=== PATIENT | female | born 1950 | race American Indian/Alaskan Native ===

== ENCOUNTER → 2023-01-24 | Outpatient (CLI) | payer OTHER ==
[2023-01-24 16:28] LABS: Potassium 3.6 mmol/L (3.5-5.1); Sodium 137 mmol/L (136-145)
[2023-01-24 16:29] LABS: Alanine Aminotransferase 23 U/L (13-56); Albumin 3.5 g/dL (3.4-5.0); Alkaline Phosphatase 100 U/L (45-117); Anion Gap 4 (5-15); Aspartate Aminotransferase 15 U/L (15-37); BUN/Creatinine Ratio 29.1 (10.0-20.0); Bilirubin, Total 0.6 mg/dL (0.2-1.0); Blood Urea Nitrogen 16 mg/dL (7-18); Calcium 9.3 mg/dL (8.5-10.1); Carbon Dioxide 24 mmol/L (21-32); Chloride 109 mmol/L (98-107); GFR African American 140 mL/min; GFR Non-African American 115 mL/min; Glucose 90 mg/dL (74-106); Total Protein 7.5 g/dL (6.4-8.2)
[2023-01-24 19:09] LABS: CRP High Sensitivity 0.085 mg/dL (< 0.3); Cholesterol 139 mg/dL (< 200); Creatine Kinase IFCC 79 U/L (26-192); HDL Cholesterol 41 mg/dL (40-59); LDL Cholesterol 83 mg/dL (< 100); Triglycerides 165 mg/dL (< 150)
== END | disposition home or self-care (01) ==
LOC: LAB 11:40
PROVIDERS: ATTEND Internal Medicine
DX: I20.1 Angina pectoris with documented spasm (principal); E78.5 Hyperlipidemia, unspecified
CPT/HCPCS: 36415; 80053; 80061; 82306; 82550; 84436; 84443; 84480; 86141

== ENCOUNTER 2023-05-02 12:27 | Emergency (ER) | payer OTHER ==
[~2023-05-02] VITALS: Ht 157.5 cm; Wt 62.9 kg
[2023-05-02 13:17] LABS: Basophils # (auto) 0 10 ^3/uL (0-0.2); Basophils % (auto) 0.4 % (0.0-2.0); Eosinophils # (auto) 0.1 10 ^3/uL (0-0.8); Eosinophils % (auto) 0.8 % (0.0-7.0); Hemoglobin 12.9 g/dL (12.2-16.2); Lymphocytes # (auto) 0.9 10 ^3/uL (0.4-5.4); Lymphocytes % (auto) 11.1 % (10.0-50.0); Mean Corpuscular Hemoglobin 29.7 pg (28.0-32.0); Monocytes # (auto) 0.2 10 ^3/uL (0-1.3); Monocytes % (auto) 3.1 % (0.0-12.0); Neutrophils # (auto) 6.7 10 ^3/uL (1.6-8.6); Neutrophils % (auto) 84.6 % (37.0-80.0); Nucleated Red Blood Cells % 0.1 %; Red Blood Cells 4.34 10^6/uL (4.0-5.20); Red Cell Distribution Width 15.7 % (11.8-14.3)
[2023-05-02 13:39] LABS: Albumin 3.7 g/dL (3.4-5.0); Potassium 3.8 mmol/L (3.5-5.1)
[2023-05-02 13:42] LABS: BUN/Creatinine Ratio 14.9 (10.0-20.0); Bilirubin, Total 0.9 mg/dL (0.2-1.0); Total Protein 7.5 g/dL (6.4-8.2)
[2023-05-02] MEDS ORDERED: TETRACAINE HCL 0.5% OPTH(EYE) SOLN 4ML RIGHTEYE ONE (14:45)
[2023-05-02 19:11] VITALS: BP 188/80; PULSE 68; RESP 17; TEMP 97; O2SAT 100
== END 2023-05-02 19:12 | disposition home or self-care (01) ==
LOC: ER 12:27
DX: R51.9 Headache, unspecified (principal)
CPT/HCPCS: 36415; 70450; 80053; 85025

== ENCOUNTER 2023-08-26 03:19 | Emergency (ER) | payer OTHER ==
[~2023-08-26] VITALS: Ht 154.9 cm; Wt 66.1 kg
[2023-08-26 04:08] VITALS: PULSE 65; RESP 18; O2SAT 94
[2023-08-26 04:12] LABS: Basophils # (auto) 0 10 ^3/uL (0-0.2); Basophils % (auto) 0.6 % (0.0-2.0); Eosinophils # (auto) 0.1 10 ^3/uL (0-0.8); Eosinophils % (auto) 1.5 % (0.0-7.0); Hematocrit 36.2 % (36.0-46.0); Hemoglobin 12.2 g/dL (12.2-16.2); Lymphocytes # (auto) 0.8 10 ^3/uL (0.4-5.4); Lymphocytes % (auto) 11.6 % (10.0-50.0); Mean Corpuscular Hemoglobin 31.3 pg (28.0-32.0); Mean Corpuscular Hgb Conc. 33.8 g/dL (32.0-36.0); Mean Corpuscular Volume 92.4 fL (80.0-100.0); Monocytes # (auto) 0.4 10 ^3/uL (0-1.3); Monocytes % (auto) 5.5 % (0.0-12.0); Neutrophils # (auto) 5.8 10 ^3/uL (1.6-8.6); Neutrophils % (auto) 80.8 % (37.0-80.0); Red Blood Cells 3.91 10^6/uL (4.0-5.20); Red Cell Distribution Width 15.5 % (11.8-14.3); White Blood Cell 7.1 10^3/uL (4.4-10.8)
[2023-08-26] MEDS ORDERED: hydrALAZINE HCL 20 MG/ML VL IV ONE (04:15)
[2023-08-26] MEDS ORDERED: IOHEXOL 350 MG/ML 100ML IJ ONE (04:19)
[2023-08-26 04:36] LABS: Alanine Aminotransferase 58 U/L (7-40); Albumin 4.1 g/dL (3.2-4.8); Alkaline Phosphatase 203 U/L (46-116); Anion Gap 7 (5-15); Aspartate Aminotransferase 36 U/L (13-40); BUN/Creatinine Ratio 15.7 (10.0-20.0); Blood Urea Nitrogen 19 mg/dL (9-23); Calcium 9.4 mg/dL (8.7-10.4); Carbon Dioxide 26 mmol/L (20-30); Chloride 105 mmol/L (98-107); Glucose 127 mg/dL (74-106); Sodium 138 mmol/L (136-145)
[2023-08-26 04:37] LABS: Total Protein 7.2 g/dL (5.7-8.2)
[2023-08-26 04:44] LABS: INR 1.04 (0.9-1.15); Partial Thromboplastin Time 27.2 SEC (24.5-34.5); Prothrombin Time 10.9 sec (9.3-11.8)
[2023-08-26 06:57] LABS: Erythrocyte Sedimentation Rate 10 mm/hr (0-20)
[2023-08-26 07:38] LABS: Urine Bacteria FEW /hpf (None Seen); Urine Blood Negative /uL (Negative); Urine Clarity Clear (Clear); Urine Protein, UAD 1+ (Negative); Urine Specific Gravity 1.033 (1.001-1.035); Urine Urobilinogen Normal (Negative); Urine WBC 1 /hpf (0 - 5); Urine pH 5.5 (5.0-8.0)
[2023-08-26 07:39] LABS: Urine Color Yellow (Yellow)
[2023-08-26 08:00] VITALS: PULSE 85; RESP 21; O2SAT 92
[2023-08-26 08:50] VITALS: BP 132/99; PULSE 90; RESP 18; TEMP 97.9; O2SAT 97
[2023-08-26] MEDS ORDERED: PROCHLORPERAZINE EDISYLATE 5 MG/ML 2ML VIAL IM ONE (09:00)
[2023-08-26] MEDS ORDERED: ACETAMINOPHEN 325 MG TAB PO ONE (09:00)
== END 2023-08-26 14:31 | disposition short-term general hospital (02) ==
LOC: ER 03:19
DX: I67.1 Cerebral aneurysm, nonruptured (principal); I16.0 Hypertensive urgency; R79.89 Other specified abnormal findings of blood chemistry; R29.810 Facial weakness; I10 Essential (primary) hypertension; M19.90 Unspecified osteoarthritis, unspecified site; Z90.89 Acquired absence of other organs
CPT/HCPCS: 36415; 70496; 80053; 81001; 82962; 83735; 83880; 84484; 85025; 85610; 85652; 85730; 86141; 93005; 96372; 96374; 99291; J0360; J0780; Q9967

== ENCOUNTER 2023-12-06 13:28 | Inpatient (IN) | payer MEDICAID, OTHER ==
[~2023-12-06] VITALS: Ht 154.9 cm; Wt 75.0 kg
[2023-12-06 15:04] VITALS: PULSE 70; O2SAT 96
[2023-12-06] MEDS ORDERED: hydrALAZINE HCL 20 MG/ML VL IV ONE (15:15)
[2023-12-06] MEDS: hydrALAZINE HCL 20 MG/ML VL ONE (15:29)
[2023-12-06] MEDS: ONDANSETRON HCL 4 MG/2 ML VIAL ONE (15:29)
[2023-12-06] MEDS: ONDANSETRON HCL 4 MG/2 ML VIAL IV ONE (15:30)
[2023-12-06 15:59] LABS: Basophils # (auto) 0 10 ^3/uL (0-0.2); Basophils % (auto) 0.5 % (0.0-2.0); Eosinophils # (auto) 0 10 ^3/uL (0-0.8); Eosinophils % (auto) 0.6 % (0.0-7.0); Hematocrit 40.7 % (36.0-46.0); Hemoglobin 13.2 g/dL (12.2-16.2); Lymphocytes # (auto) 0.7 10 ^3/uL (0.4-5.4); Lymphocytes % (auto) 11.1 % (10.0-50.0); Mean Corpuscular Hemoglobin 30.7 pg (28.0-32.0); Mean Corpuscular Hgb Conc. 32.3 g/dL (32.0-36.0); Mean Corpuscular Volume 94.8 fL (80.0-100.0); Monocytes # (auto) 0.1 10 ^3/uL (0-1.3); Monocytes % (auto) 1.7 % (0.0-12.0); Neutrophils # (auto) 5.6 10 ^3/uL (1.6-8.6); Neutrophils % (auto) 86.1 % (37.0-80.0); Nucleated Red Blood Cells % 0.2 %; Red Blood Cells 4.29 10^6/uL (4.0-5.20); Red Cell Distribution Width 14.8 % (11.8-14.3); White Blood Cell 6.5 10^3/uL (4.4-10.8)
[2023-12-06 16:18] LABS: Alanine Aminotransferase 42 U/L (7-40); Albumin 4.2 g/dL (3.2-4.8); Alkaline Phosphatase 164 U/L (46-116); Anion Gap 7 (5-15); Aspartate Aminotransferase 33 U/L (13-40); BUN/Creatinine Ratio 16.9 (10.0-20.0); Bilirubin, Total 1.2 mg/dL (0.2-1.0); Blood Urea Nitrogen 22 mg/dL (9-23); Calcium 9.6 mg/dL (8.7-10.4); Carbon Dioxide 24 mmol/L (20-30); Chloride 107 mmol/L (98-107); Glucose 107 mg/dL (74-106); Lipase 31 U/L (12-53); Magnesium 2.1 mg/dL (1.6-2.6); Potassium 4.1 mmol/L (3.5-5.1); Sodium 138 mmol/L (136-145); Total Protein 7.6 g/dL (5.7-8.2)
[2023-12-06 16:21] LABS: INR 1.09 (0.9-1.15); Partial Thromboplastin Time 27.8 SEC (24.5-34.5); Prothrombin Time 11.4 sec (9.3-11.8)
[2023-12-06] MEDS: IOHEXOL 350 MG/ML 100ML IJ ONE (16:47)
[2023-12-06] MEDS: hydrALAZINE HCL 20 MG/ML VL IV ONE (17:22)
[2023-12-06] MEDS: ACETAMINOPHEN 325 MG TAB PO ONE (17:34)
[2023-12-06] MEDS: MORPHINE SULFATE INJ 2 MG/ml SYRG ONE (18:32)
[2023-12-06] MEDS: MORPHINE SULFATE INJ 2 MG/ml SYRG IV ONE (18:33)
[2023-12-06] MEDS: PROCHLORPERAZINE MALEATE 10 MG TAB PO ONE (18:36)
[2023-12-06] MEDS: diphenhdrAMINE HCL 25 MG CAP PO ONE (18:36)
[2023-12-06] MEDS: cloNIDine HCL 0.1 MG TAB PO ONE (18:36)
[2023-12-06] MEDS ORDERED: LOS25T PO (18:43)
[2023-12-06] MEDS ORDERED: ASPI-325 PO (18:43)
[2023-12-06] MEDS ORDERED: ATOR40TA52 PO (18:43)
[2023-12-06] MEDS ORDERED: NITROGLYCERIN 0.4 MG SL TAB SL PRN (18:45)
[2023-12-06] MEDS ORDERED: DOCUSATE SOD 100 MG CAP PO PRN (18:45)
[2023-12-06] MEDS ORDERED: MORPHINE SULFATE INJ 2 MG/ml SYRG IV PRN (18:45)
[2023-12-06] MEDS: cefTRIAXone 1GM/50ML D5W 50 ML IV ONE (19:03)
[2023-12-06] MEDS: SODIUM CHLORIDE 0.9% 1,000 ML IV ONE (19:04)
[2023-12-06 19:05] VITALS: BP 165/80; PULSE 110; RESP 22; O2SAT 98
[2023-12-06 19:28] LABS: Urine Bacteria NONE SEEN /hpf (None Seen); Urine Blood Negative /uL (Negative); Urine Clarity Clear (Clear); Urine Color Yellow (Yellow); Urine Protein, UAD 2+ (Negative); Urine Specific Gravity 1.028 (1.001-1.035); Urine Urobilinogen Normal (Negative); Urine WBC 2 /hpf (0 - 5); Urine pH 5.5 (5.0-8.0)
[2023-12-06 19:30] VITALS: PULSE 108; RESP 17; O2SAT 99
[2023-12-06] MEDS: AZITHROMYCIN 500MG/ 250ML 250 ML IV ONE (19:42)
[2023-12-06] MEDS: LABETALOL HCL 5 MG/ML 4ML SYRINGE IV ONE (19:43)
[2023-12-06 21:33] VITALS: O2SAT 98
[2023-12-06] MEDS ORDERED: LORazepam 2MG/ML-1ML VIAL IV PRN (22:30)
[2023-12-06 23:03] VITALS: BP 148/70; PULSE 90; RESP 20; O2SAT 98
[2023-12-07] VITALS (8 sets, daily range): BP systolic 133–172; BP diastolic 63–87; PULSE 65–88; RESP 14–24; TEMP 97.8–98.5; O2SAT 91–96
[2023-12-07] MEDS: SODIUM CHLORIDE 0.9% 1,000 ML IV SCH (00:19)
[2023-12-07] MEDS: LABETALOL HCL 5 MG/ML 4ML SYRINGE IV PRN (04:43)
[2023-12-07] MEDS: HYDROcodone-ACET 5/325MG TAB PO PRN (04:44)
[2023-12-07 06:07] LABS: Basophils # (auto) 0 10 ^3/uL (0-0.2); Basophils % (auto) 0.3 % (0.0-2.0); Eosinophils # (auto) 0 10 ^3/uL (0-0.8); Eosinophils % (auto) 0.1 % (0.0-7.0); Hematocrit 36.2 % (36.0-46.0); Hemoglobin 11.3 g/dL (12.2-16.2); Lymphocytes # (auto) 0.9 10 ^3/uL (0.4-5.4); Lymphocytes % (auto) 11.3 % (10.0-50.0); Mean Corpuscular Hgb Conc. 31.1 g/dL (32.0-36.0); Mean Corpuscular Volume 99.6 fL (80.0-100.0); Monocytes # (auto) 0.5 10 ^3/uL (0-1.3); Monocytes % (auto) 5.8 % (0.0-12.0); Neutrophils # (auto) 6.9 10 ^3/uL (1.6-8.6); Neutrophils % (auto) 82.5 % (37.0-80.0); Nucleated Red Blood Cells % 0.1 %; Red Blood Cells 3.63 10^6/uL (4.0-5.20); Red Cell Distribution Width 16.4 % (11.8-14.3); White Blood Cell 8.4 10^3/uL (4.4-10.8)
[2023-12-07] MEDS: METOCLOPRAMIDE HCL 10 MG TAB PO SCH (06:16)
[2023-12-07 06:22] LABS: Alanine Aminotransferase 37 U/L (7-40); Albumin 3.5 g/dL (3.2-4.8); Alkaline Phosphatase 129 U/L (46-116); Anion Gap 8 (5-15); Aspartate Aminotransferase 33 U/L (13-40); BUN/Creatinine Ratio 21.7 (10.0-20.0); Blood Urea Nitrogen 30 mg/dL (9-23); Calcium 9.3 mg/dL (8.5-10.1); Carbon Dioxide 22 mmol/L (20-30); Chloride 109 mmol/L (98-107); Glucose 110 mg/dL (74-106); Potassium 4.4 mmol/L (3.5-5.1); Sodium 139 mmol/L (136-145)
[2023-12-07 06:23] LABS: Bilirubin, Total 0.6 mg/dL (0.2-1.0); Total Protein 6.4 g/dL (5.7-8.2)
[2023-12-07] MEDS: cefTRIAXone 1GM/50ML D5W 50 ML IV SCH (09:16)
[2023-12-07] MEDS: ASPirin-EC 81 mg tab PO SCH (09:17)
[2023-12-07] MEDS: FUROSEMIDE 40 MG/4 ML VIAL IV SCH (09:17)
[2023-12-07] MEDS: PANTOPRAZOLE 40 MG/10 ML VIAL INJ IV SCH (09:17)
[2023-12-07] MEDS: LOSARTAN POTASSIUM 25 MG TAB PO SCH (09:18)
[2023-12-07] MEDS: ATORVASTATIN 20 MG TAB PO SCH (09:18)
[2023-12-07] MEDS ORDERED: ENOXAPARIN SOD 40 MG/0.4 ML SYRINGE SC SCH (10:00)
[2023-12-07 10:46] LABS: Phosphorus 5.5 mg/dL (2.4-5.1)
[2023-12-07] MEDS: DexAMETHasone INJECTION 10 MG in D5W 5% 50 ML IV SCH (11:21)
[2023-12-07 11:26] LABS: Magnesium 2.1 mg/dL (1.6-2.6)
[2023-12-07] MEDS: AZITHROMYCIN 500MG/ 250ML 250 ML IV SCH (12:30)
[2023-12-07] MEDS: amLODIPine BESYLATE 5 MG TAB PO ONE (12:31)
[2023-12-07] MEDS: CARVEDILOL 3.125 MG TAB PO SCH (21:19)
[2023-12-07] MEDS: AMITRIPTYLINE HCL 25 MG TAB PO SCH (21:20)
[2023-12-08] VITALS (13 sets, daily range): BP systolic 116–173; BP diastolic 63–85; PULSE 73–95; RESP 18–20; TEMP 97.5–98; O2SAT 90–98
[2023-12-08] MEDS: amLODIPine BESYLATE 5 MG TAB PO SCH (08:44)
[2023-12-08] MEDS: VALSARTAN 80 MG TAB PO SCH (08:45)
[2023-12-08] MEDS: ALBUTEROL SULF 2.5 MG/0.5ML(0.5%) NEB SOLN NEB PRN (09:08)
[2023-12-08] MEDS: IPRATROPIUM BROM 0.5 MG/2.5ML INH SOL NEB PRN (09:08)
[2023-12-08 11:11] LABS: Anti-Centromere B Antibody <0.2 AI (0.0-0.9); Anti-Jo-1 Antibody <0.2 AI (0.0-0.9); Anti-dsDNA Antibody 2 IU/mL (0-9); Antichromatin Antibody <0.2 AI (0.0-0.9); Antiscleroderma-70 Antibody <0.2 AI (0.0-0.9); RNP Antibody 1.1 AI (0.0-0.9); Sjogren's Anti-SS-A Antibody <0.2 AI (0.0-0.9); Sjogren's Anti-SS-B Antibody <0.2 AI (0.0-0.9); Smith Antibody <0.2 AI (0.0-0.9)
[2023-12-08] MEDS: SOD CHL 0.45% 1,000 ML IV SCH (14:02)
[2023-12-08] MEDS ORDERED: cloNIDine HCL 0.1 MG TAB PO PRN (14:15)
[2023-12-08 14:20] LABS: Chloride 111 mmol/L (98-107); Potassium 3.8 mmol/L (3.5-5.1); Sodium 137 mmol/L (136-145)
[2023-12-08 14:21] LABS: Anion Gap 7 (5-15); Carbon Dioxide 19 mmol/L (20-30)
[2023-12-08 14:22] LABS: Calcium 7.9 mg/dL (8.5-10.1)
[2023-12-08 14:27] LABS: BUN/Creatinine Ratio 17.6 (10.0-20.0); Blood Urea Nitrogen 31 mg/dL (9-23); Glucose 111 mg/dL (74-106)
[2023-12-09] VITALS (10 sets, daily range): BP systolic 135–169; BP diastolic 65–78; PULSE 75–100; RESP 17–20; TEMP 97.7–98.4; O2SAT 91–98
[2023-12-09] MEDS: amLODIPine BESYLATE 5 MG TAB PO SCH (10:48)
[2023-12-09] MEDS: cloNIDine HCL 0.1 MG TAB PO ONE (21:32)
[2023-12-10] VITALS (10 sets, daily range): BP systolic 148–167; BP diastolic 72–80; PULSE 63–106; RESP 17–20; TEMP 97.4–97.9; O2SAT 93–99
[2023-12-10 05:57] LABS: Alanine Aminotransferase 21 U/L (7-40); Albumin 3.1 g/dL (3.2-4.8); Alkaline Phosphatase 106 U/L (46-116); Anion Gap 5 (5-15); Aspartate Aminotransferase 14 U/L (13-40); BUN/Creatinine Ratio 21.4 (10.0-20.0); Bilirubin, Total 0.4 mg/dL (0.2-1.0); Calcium 9.2 mg/dL (8.7-10.4); Carbon Dioxide 22 mmol/L (20-30); Chloride 106 mmol/L (98-107); Glucose 103 mg/dL (74-106); Potassium 5.1 mmol/L (3.5-5.1); Sodium 133 mmol/L (136-145); Total Protein 5.8 g/dL (5.7-8.2)
[2023-12-10 06:05] LABS: Blood Urea Nitrogen 46 mg/dL (9-23)
[2023-12-10] MEDS ORDERED: SODIUM CHLORIDE 0.9% 1,000 ML IV SCH (08:30)
[2023-12-10] MEDS ORDERED: FURO20TA3 PO (11:03)
[2023-12-10] MEDS ORDERED: POTA-228 PO (11:03)
[2023-12-10 12:23] LABS: Basophils # (auto) 0 10 ^3/uL (0-0.2); Basophils % (auto) 0.1 % (0.0-2.0); Eosinophils # (auto) 0 10 ^3/uL (0-0.8); Hematocrit 33.8 % (36.0-46.0); Lymphocytes # (auto) 1.1 10 ^3/uL (0.4-5.4); Lymphocytes % (auto) 12.6 % (10.0-50.0); Mean Corpuscular Hemoglobin 30.3 pg (28.0-32.0); Mean Corpuscular Hgb Conc. 32.7 g/dL (32.0-36.0); Mean Corpuscular Volume 92.7 fL (80.0-100.0); Monocytes # (auto) 0.5 10 ^3/uL (0-1.3); Monocytes % (auto) 5.5 % (0.0-12.0); Neutrophils % (auto) 81.8 % (37.0-80.0); Nucleated Red Blood Cells % 0.1 %; Red Blood Cells 3.64 10^6/uL (4.0-5.20); Red Cell Distribution Width 14.5 % (11.8-14.3); White Blood Cell 8.5 10^3/uL (4.4-10.8)
[2023-12-10] MEDS ORDERED: ARTIFICIAL TEARS 15ml EACHEYE PRN (16:00)
[2023-12-10] MEDS: FUROSEMIDE 40 MG/4 ML VIAL IV ONE (21:57)
[2023-12-10] MEDS: hydrALAZINE HCL 10 MG TAB PO SCH (21:57)
[2023-12-10 23:04] LABS: Creatine Kinase IFCC 51 U/L (34-145)
[2023-12-10 23:16] LABS: Creatinine, Urine 33.55 mg/dL (30.0-125.0)
[2023-12-10 23:18] LABS: Erythrocyte Sedimentation Rate 2 mm/hr (0-20)
[2023-12-10 23:46] LABS: CRP High Sensitivity < 0.02 mg/dL (<1.0)
[2023-12-11] VITALS (9 sets, daily range): BP systolic 143–188; BP diastolic 71–89; PULSE 63–89; RESP 16–20; TEMP 97.4–98.5; O2SAT 93–96
[2023-12-11] MEDS: FUROSEMIDE 40 MG/4 ML VIAL IV SCH (05:59)
[2023-12-11] MEDS: SODIUM CHLORIDE 0.9% 1,000 ML IV SCH (07:45)
[2023-12-11 08:32] LABS: Basophils # (auto) 0 10 ^3/uL (0-0.2); Basophils % (auto) 0.1 % (0.0-2.0); Eosinophils # (auto) 0 10 ^3/uL (0-0.8); Eosinophils % (auto) 0.1 % (0.0-7.0); Hematocrit 37.7 % (36.0-46.0); Hemoglobin 12.5 g/dL (12.2-16.2); Lymphocytes # (auto) 1.5 10 ^3/uL (0.4-5.4); Lymphocytes % (auto) 14.1 % (10.0-50.0); Mean Corpuscular Hemoglobin 30.8 pg (28.0-32.0); Mean Corpuscular Hgb Conc. 33.2 g/dL (32.0-36.0); Mean Corpuscular Volume 92.8 fL (80.0-100.0); Monocytes # (auto) 0.8 10 ^3/uL (0-1.3); Monocytes % (auto) 7.8 % (0.0-12.0); Neutrophils # (auto) 8.4 10 ^3/uL (1.6-8.6); Neutrophils % (auto) 77.9 % (37.0-80.0); Nucleated Red Blood Cells % 0.1 %; Red Blood Cells 4.06 10^6/uL (4.0-5.20); Red Cell Distribution Width 14.9 % (11.8-14.3); White Blood Cell 10.8 10^3/uL (4.4-10.8)
[2023-12-11 08:51] LABS: Alanine Aminotransferase 25 U/L (7-40); Albumin 3.7 g/dL (3.2-4.8); Alkaline Phosphatase 125 U/L (46-116); Anion Gap 5 (5-15); Aspartate Aminotransferase 30 U/L (13-40); BUN/Creatinine Ratio 23.5 (10.0-20.0); Blood Urea Nitrogen 48 mg/dL (9-23); Calcium 9.5 mg/dL (8.7-10.4); Carbon Dioxide 25 mmol/L (20-30); Chloride 103 mmol/L (98-107); Glucose 88 mg/dL (74-106); Potassium 4.6 mmol/L (3.5-5.1); Sodium 133 mmol/L (136-145)
[2023-12-11 08:52] LABS: Bilirubin, Total 0.4 mg/dL (0.2-1.0); Total Protein 6.7 g/dL (5.7-8.2)
[2023-12-11 08:57] LABS: Magnesium 2.1 mg/dL (1.6-2.6)
[2023-12-11] MEDS ORDERED: PANTOPRAZOLE 40 MG TAB PO SCH (10:00)
[2023-12-11] MEDS: COLCHICINE 0.6 MG CAP PO SCH (12:06)
[2023-12-11] MEDS: PANTOPRAZOLE 40 MG TAB PO SCH (12:06)
[2023-12-11] MEDS: DOXYCYCLINE 100 MG TAB/CAP PO SCH (12:07)
[2023-12-11] MEDS: LORazepam 0.5 MG TAB PO ONE (12:45)
[2023-12-11] MEDS: hydrALAZINE HCL 25 MG TAB PO SCH (14:40)
[2023-12-12] VITALS (50 sets, daily range): BP systolic 87–155; BP diastolic 51–77; PULSE 76–107; RESP 12–19; TEMP 97.9–98.3; O2SAT 90–100
[2023-12-12 06:12] LABS: Basophils # (auto) 0 10 ^3/uL (0-0.2); Basophils % (auto) 0.2 % (0.0-2.0); Eosinophils # (auto) 0.2 10 ^3/uL (0-0.8); Eosinophils % (auto) 2.1 % (0.0-7.0); Hematocrit 34.5 % (36.0-46.0); Hemoglobin 11.5 g/dL (12.2-16.2); Lymphocytes # (auto) 2.3 10 ^3/uL (0.4-5.4); Lymphocytes % (auto) 19.4 % (10.0-50.0); Mean Corpuscular Hemoglobin 30.3 pg (28.0-32.0); Mean Corpuscular Hgb Conc. 33.2 g/dL (32.0-36.0); Mean Corpuscular Volume 91.2 fL (80.0-100.0); Monocytes # (auto) 1.1 10 ^3/uL (0-1.3); Monocytes % (auto) 9.7 % (0.0-12.0); Neutrophils % (auto) 68.6 % (37.0-80.0); Red Blood Cells 3.78 10^6/uL (4.0-5.20); Red Cell Distribution Width 14.5 % (11.8-14.3); White Blood Cell 11.6 10^3/uL (4.4-10.8)
[2023-12-12 06:30] LABS: Alanine Aminotransferase 25 U/L (7-40); Albumin 3.3 g/dL (3.2-4.8); Alkaline Phosphatase 143 U/L (46-116); Anion Gap 5 (5-15); Aspartate Aminotransferase 20 U/L (13-40); BUN/Creatinine Ratio 23.1 (10.0-20.0); Bilirubin, Total 0.4 mg/dL (0.2-1.0); Blood Urea Nitrogen 45 mg/dL (9-23); Calcium 9.1 mg/dL (8.7-10.4); Carbon Dioxide 26 mmol/L (20-30); Chloride 104 mmol/L (98-107); Glucose 83 mg/dL (74-106); Magnesium 1.8 mg/dL (1.6-2.6); Sodium 135 mmol/L (136-145)
[2023-12-12 07:06] LABS: RPR Non Reactive (Non Reactive)
[2023-12-12 08:07] LABS: Anti-Nuclear Antibody Direct Positive (Negative); CMV IgG Antibody >10.00 U/mL (0.00-0.59); CMV IgM Antibody <30.0 AU/mL (0.0-29.9); EBV Ab VCA IgG Antibody 63.9 U/mL (0.0-17.9); EBV Ab VCA IgM Antibody <36.0 U/mL (0.0-35.9); EBV Early Antigen IgG Antibody 49.2 U/mL (0.0-17.9); Rheumatoid Arthritis Factor 13.1 IU/mL (<14.0); Varicella Zoster IgG Antibody 391 index (Immune >165)
[2023-12-12] MEDS: cloNIDine HCL 0.1 MG TAB PO SCH (09:15)
[2023-12-12] MEDS: LIDOCAINE 2%HCL (LOCAL ANESTH.) INJ 20ML MDV ONE (09:54)
[2023-12-12] MEDS: MIDAZOLAM HCL 2MG/2ML 2ml VIAL (1mg/ml) ONE (09:58)
[2023-12-12] MEDS: fentaNYL CITRATE 100 MCG/2 ML VL ONE (09:58)
[2023-12-12 10:07] LABS: Anti-dsDNA Antibody 1 IU/mL (0-9); RNP Antibody 1.2 AI (0.0-0.9); Sjogren's Anti-SS-A Antibody <0.2 AI (0.0-0.9); Sjogren's Anti-SS-B Antibody <0.2 AI (0.0-0.9); Smith Antibody <0.2 AI (0.0-0.9)
[2023-12-12 11:06] LABS: Albumin 3.2 g/dL (2.9-4.4); Alpha-1-Globulin 0.3 g/dL (0.0-0.4); Alpha-2-Globulin 0.7 g/dL (0.4-1.0); Gamma Globulin 1.7 g/dL (0.4-1.8); Globulin Total 3.3 g/dL (2.2-3.9); Protein Total Serum 6.5 g/dL (6.0-8.5)
[2023-12-12] MEDS: ACETAMINOPHEN 325 MG TAB PO PRN (14:18)
[2023-12-12 14:23] LABS: Body Fluid pH 9
[2023-12-12] MEDS: MORPHINE SULFATE INJ 2 MG/ml SYRG ONE (16:16)
[2023-12-12] MEDS: ONDANSETRON HCL 4 MG/2 ML VIAL IV PRN (16:18)
[2023-12-12] MEDS: MORPHINE SULFATE INJ 2 MG/ml SYRG IV PRN (16:19)
[2023-12-12 18:40] LABS: Body Fluid Polymorphonuclear 65 % (0-25); Body Fluid Red Blood Cells 217000 CUMM (0-2000); Body Fluid White Blood Cells 750 CUMM (0-200)
[2023-12-12 20:21] LABS: Basophils # (auto) 0 10 ^3/uL (0-0.2); Basophils % (auto) 0.1 % (0.0-2.0); Eosinophils # (auto) 0.1 10 ^3/uL (0-0.8); Eosinophils % (auto) 0.4 % (0.0-7.0); Hemoglobin 10.2 g/dL (12.2-16.2); Lymphocytes # (auto) 1.8 10 ^3/uL (0.4-5.4); Lymphocytes % (auto) 11.8 % (10.0-50.0); Mean Corpuscular Hemoglobin 30.3 pg (28.0-32.0); Mean Corpuscular Hgb Conc. 31.8 g/dL (32.0-36.0); Mean Corpuscular Volume 95.1 fL (80.0-100.0); Monocytes # (auto) 0.8 10 ^3/uL (0-1.3); Monocytes % (auto) 5.1 % (0.0-12.0); Neutrophils # (auto) 12.5 10 ^3/uL (1.6-8.6); Neutrophils % (auto) 82.6 % (37.0-80.0); Nucleated Red Blood Cells % 0.1 %; Red Blood Cells 3.36 10^6/uL (4.0-5.20); White Blood Cell 15.2 10^3/uL (4.4-10.8)
[2023-12-12 20:30] LABS: Alanine Aminotransferase 22 U/L (7-40); Albumin 3.1 g/dL (3.2-4.8); Alkaline Phosphatase 111 U/L (46-116); Anion Gap 5 (5-15); Aspartate Aminotransferase 17 U/L (13-40); BUN/Creatinine Ratio 20.7 (10.0-20.0); Bilirubin, Total 0.6 mg/dL (0.2-1.0); Blood Urea Nitrogen 37 mg/dL (9-23); Calcium 8.8 mg/dL (8.7-10.4); Carbon Dioxide 25 mmol/L (20-30); Chloride 105 mmol/L (98-107); Glucose 147 mg/dL (74-106); Potassium 4.7 mmol/L (3.5-5.1); Sodium 135 mmol/L (136-145); Total Protein 5.6 g/dL (5.7-8.2)
[2023-12-13] VITALS (78 sets, daily range): BP systolic 97–147; BP diastolic 45–92; PULSE 72–101; RESP 11–28; TEMP 97.9–99.5; O2SAT 91–100
[2023-12-13 03:55] LABS: Basophils # (auto) 0 10 ^3/uL (0-0.2); Basophils % (auto) 0.1 % (0.0-2.0); Eosinophils # (auto) 0 10 ^3/uL (0-0.8); Eosinophils % (auto) 0.1 % (0.0-7.0); Hematocrit 26.7 % (36.0-46.0); Hemoglobin 8.8 g/dL (12.2-16.2); Lymphocytes # (auto) 1.6 10 ^3/uL (0.4-5.4); Lymphocytes % (auto) 10.8 % (10.0-50.0); Mean Corpuscular Hemoglobin 30.9 pg (28.0-32.0); Mean Corpuscular Hgb Conc. 33.1 g/dL (32.0-36.0); Mean Corpuscular Volume 93.2 fL (80.0-100.0); Monocytes # (auto) 1.1 10 ^3/uL (0-1.3); Monocytes % (auto) 7.4 % (0.0-12.0); Neutrophils # (auto) 12.2 10 ^3/uL (1.6-8.6); Neutrophils % (auto) 81.6 % (37.0-80.0); Nucleated Red Blood Cells % 0.1 %; Red Blood Cells 2.87 10^6/uL (4.0-5.20); Red Cell Distribution Width 14.9 % (11.8-14.3); White Blood Cell 14.9 10^3/uL (4.4-10.8)
[2023-12-13 04:07] LABS: Calcium 8.8 mg/dL (8.7-10.4); Chloride 105 mmol/L (98-107); Potassium 4.9 mmol/L (3.5-5.1); Sodium 135 mmol/L (136-145)
[2023-12-13 04:08] LABS: Anion Gap 4 (5-15); Carbon Dioxide 26 mmol/L (20-30)
[2023-12-13 04:13] LABS: BUN/Creatinine Ratio 22.9 (10.0-20.0); Blood Urea Nitrogen 41 mg/dL (9-23); Glucose 105 mg/dL (74-106); Magnesium 1.9 mg/dL (1.6-2.6)
[2023-12-13] MEDS ORDERED: ACETAMINOPHEN 650 mg PER 20.3 mL UD GT PRN (08:00)
[2023-12-13] MEDS: KETOROLAC TROMETH 30 MG/ML 1ML VIAL IV ONE (08:04)
[2023-12-13 08:06] LABS: Thyroid Peroxidase (TPO) Ab <9 IU/mL (0-34)
[2023-12-13] MEDS: KETOROLAC TROMETH 30 MG/ML 1ML VIAL ONE (08:07)
[2023-12-13 09:31] LABS: Hepatitis B Core Total AB Negative (Negative)
[2023-12-13] MEDS: SODIUM CHLORIDE 0.9% 1,000 ML IV SCH ×2 (09:45→14:59)
[2023-12-13 10:54] LABS: Alanine Aminotransferase 21 U/L (7-40); Albumin 3.2 g/dL (3.2-4.8); Alkaline Phosphatase 100 U/L (46-116); Anion Gap 3 (5-15); Aspartate Aminotransferase 18 U/L (13-40); BUN/Creatinine Ratio 24.7 (10.0-20.0); Bilirubin, Total 0.6 mg/dL (0.2-1.0); Blood Urea Nitrogen 46 mg/dL (9-23); Calcium 8.6 mg/dL (8.5-10.1); Carbon Dioxide 26 mmol/L (20-30); Chloride 105 mmol/L (98-107); Glucose 112 mg/dL (74-106); Potassium 4.7 mmol/L (3.5-5.1); Sodium 134 mmol/L (136-145); Total Protein 5.3 g/dL (5.7-8.2)
[2023-12-13 11:00] LABS: Basophils # (auto) 0 10 ^3/uL (0-0.2); Eosinophils # (auto) 0 10 ^3/uL (0-0.8); Monocytes # (auto) 2.2 10 ^3/uL (0-1.3); White Blood Cell 21.1 10^3/uL (4.4-10.8)
[2023-12-13 11:01] LABS: Basophils % (auto) 0.1 % (0.0-2.0); Eosinophils % (auto) 0.1 % (0.0-7.0); Hematocrit 24.4 % (36.0-46.0); Lymphocytes # (auto) 1.1 10 ^3/uL (0.4-5.4); Lymphocytes % (auto) 5.2 % (10.0-50.0); Mean Corpuscular Hemoglobin 30.3 pg (28.0-32.0); Mean Corpuscular Hgb Conc. 32.6 g/dL (32.0-36.0); Mean Corpuscular Volume 93.1 fL (80.0-100.0); Monocytes % (auto) 10.2 % (0.0-12.0); Neutrophils # (auto) 17.8 10 ^3/uL (1.6-8.6); Neutrophils % (auto) 84.4 % (37.0-80.0); Red Blood Cells 2.62 10^6/uL (4.0-5.20); Red Cell Distribution Width 14.5 % (11.8-14.3)
[2023-12-13 11:05] LABS: Hepatitis A Total Antibody Positive (Negative); Hepatitis B Surface Antibody Negative (Negative); Hepatitis B Surface Antigen Negative (Negative); Hepatitis C Antibody Negative (Negative)
[2023-12-13 11:10] LABS: Wright Stain Ready for Review
[2023-12-13 12:52] LABS: INR 1.13 (0.9-1.15); Partial Thromboplastin Time 28.7 SEC (24.5-34.5); Prothrombin Time 11.8 sec (9.3-11.8)
[2023-12-13 13:07] LABS: Albumin, Body Fluid 2.9 g/dL (Not Estab.); Protein, Body Fluid 4.7 g/dL (.)
[2023-12-13 13:07] LABS: Adrenocorticotropic Hormone <1.5 pg/mL (7.2-63.3)
[2023-12-13 16:06] LABS: CCP IgG/IgA Antibody 5 units (0-19)
[2023-12-13] MEDS: cefTRIAXone 1GM/50ML D5W 50 ML IV ONE (16:16)
[2023-12-13] MEDS: DOCUSATE SOD 100 MG CAP PO ONE (16:16)
[2023-12-13 17:06] LABS: Anticardiolipin IgG Antibody <9 GPL U/mL (0-14); Anticardiolipin IgM Antibody <9 MPL U/mL (0-12)
[2023-12-13 18:06] LABS: Antimyeloperoxidase (MPO) Ab <0.2 units (0.0-0.9); Antiproteinase 3 (PR-3) Ab <0.2 units (0.0-0.9)
[2023-12-13 19:06] LABS: Treponema pallidum Ab (FTA-Ab) Non Reactive (Non Reactive)
[2023-12-13 20:08] LABS: Basophils # (auto) 0 10 ^3/uL (0-0.2); Basophils % (auto) 0.1 % (0.0-2.0); Eosinophils # (auto) 0 10 ^3/uL (0-0.8); Hemoglobin 7.4 g/dL (12.2-16.2); Lymphocytes # (auto) 1.2 10 ^3/uL (0.4-5.4)
[2023-12-13 20:10] LABS: Hematocrit 22.6 % (36.0-46.0); Lymphocytes % (auto) 5.2 % (10.0-50.0); Mean Corpuscular Hemoglobin 30.3 pg (28.0-32.0); Mean Corpuscular Hgb Conc. 32.6 g/dL (32.0-36.0); Mean Corpuscular Volume 93.1 fL (80.0-100.0); Monocytes # (auto) 2.1 10 ^3/uL (0-1.3); Monocytes % (auto) 8.8 % (0.0-12.0); Neutrophils # (auto) 20.3 10 ^3/uL (1.6-8.6); Neutrophils % (auto) 85.9 % (37.0-80.0); Red Blood Cells 2.43 10^6/uL (4.0-5.20); Red Cell Distribution Width 15.1 % (11.8-14.3); White Blood Cell 23.6 10^3/uL (4.4-10.8)
[2023-12-13 20:26] LABS: % Iron Saturation 5.8 % (15-50)
[2023-12-13 20:27] LABS: Alanine Aminotransferase 27 U/L (7-40); Albumin 3.2 g/dL (3.2-4.8); Alkaline Phosphatase 120 U/L (46-116); Anion Gap 2 (5-15); Aspartate Aminotransferase 26 U/L (13-40); BUN/Creatinine Ratio 21.6 (10.0-20.0); Bilirubin, Total 0.5 mg/dL (0.2-1.0); Blood Urea Nitrogen 45 mg/dL (9-23); Calcium 8.6 mg/dL (8.5-10.1); Carbon Dioxide 27 mmol/L (20-30); Chloride 105 mmol/L (98-107); Glucose 147 mg/dL (74-106); Potassium 5.2 mmol/L (3.5-5.1); Sodium 134 mmol/L (136-145); Total Protein 5.2 g/dL (5.7-8.2)
[2023-12-13] MEDS: DOXYCYCLINE 100MG/250ML 250 ML IV SCH (21:48)
[2023-12-13] MEDS: DOCUSATE SOD 100 MG CAP PO SCH (21:48)
[2023-12-14] VITALS (60 sets, daily range): BP systolic 99–160; BP diastolic 50–85; PULSE 78–101; RESP 12–22; TEMP 97.9–99.1; O2SAT 92–96
[2023-12-14 03:06] LABS: Angiotensin-Converting Enzyme 35 U/L (14-82)
[2023-12-14 07:40] LABS: Basophils # (auto) 0 10 ^3/uL (0-0.2); Basophils % (auto) 0.2 % (0.0-2.0); Eosinophils # (auto) 0 10 ^3/uL (0-0.8); Eosinophils % (auto) 0.1 % (0.0-7.0); Hematocrit 30.1 % (36.0-46.0); Lymphocytes # (auto) 1.3 10 ^3/uL (0.4-5.4); Lymphocytes % (auto) 6.1 % (10.0-50.0); Mean Corpuscular Hemoglobin 30.6 pg (28.0-32.0); Mean Corpuscular Hgb Conc. 33.4 g/dL (32.0-36.0); Mean Corpuscular Volume 91.7 fL (80.0-100.0); Monocytes % (auto) 9.4 % (0.0-12.0); Neutrophils # (auto) 18.1 10 ^3/uL (1.6-8.6); Neutrophils % (auto) 84.2 % (37.0-80.0); Red Blood Cells 3.28 10^6/uL (4.0-5.20); Red Cell Distribution Width 14.5 % (11.8-14.3); White Blood Cell 21.5 10^3/uL (4.4-10.8)
[2023-12-14 07:44] LABS: Chloride 105 mmol/L (98-107); Potassium 4.8 mmol/L (3.5-5.1); Sodium 133 mmol/L (136-145)
[2023-12-14 07:45] LABS: Anion Gap 4 (5-15); Calcium 8.9 mg/dL (8.7-10.4); Carbon Dioxide 24 mmol/L (20-30)
[2023-12-14 07:50] LABS: Blood Urea Nitrogen 47 mg/dL (9-23); Glucose 113 mg/dL (74-106); Magnesium 1.6 mg/dL (1.6-2.6)
[2023-12-14] MEDS: MAGNESIUM OXIDE 400 MG TAB PO ONE (09:07)
[2023-12-14] MEDS: cefTRIAXone 1GM/50ML D5W 50 ML IV SCH (09:08)
[2023-12-14] MEDS ORDERED: ACETAMINOPHEN 500 MG TAB PO PRN (11:00)
[2023-12-14] MEDS: IRON SUCROSE COMPLEX 100 ML IV SCH (12:57)
[2023-12-14 13:07] LABS: Cytoplasmic (C-ANCA) <1:20 titer (Neg:<1:20); Perinuclear (P-ANCA) <1:20 titer (Neg:<1:20)
[2023-12-14 14:07] LABS: Varicella Zoster IgM Antibody <0.91 index (0.00-0.90)
[2023-12-15] VITALS (29 sets, daily range): BP systolic 81–143; BP diastolic 42–74; PULSE 66–97; RESP 13–29; TEMP 98.1–99.1; O2SAT 92–100
[2023-12-15 04:32] LABS: Basophils # (auto) 0 10 ^3/uL (0-0.2); Basophils % (auto) 0.1 % (0.0-2.0); Eosinophils # (auto) 0.1 10 ^3/uL (0-0.8); Eosinophils % (auto) 0.7 % (0.0-7.0); Hematocrit 29.1 % (36.0-46.0); Hemoglobin 9.6 g/dL (12.2-16.2); Lymphocytes # (auto) 1.2 10 ^3/uL (0.4-5.4); Lymphocytes % (auto) 7.4 % (10.0-50.0); Mean Corpuscular Hemoglobin 30.5 pg (28.0-32.0); Mean Corpuscular Hgb Conc. 33.1 g/dL (32.0-36.0); Mean Corpuscular Volume 92.1 fL (80.0-100.0); Monocytes # (auto) 1.7 10 ^3/uL (0-1.3); Monocytes % (auto) 10.8 % (0.0-12.0); Neutrophils # (auto) 12.8 10 ^3/uL (1.6-8.6); Red Blood Cells 3.16 10^6/uL (4.0-5.20); Red Cell Distribution Width 14.8 % (11.8-14.3); White Blood Cell 15.8 10^3/uL (4.4-10.8)
[2023-12-15 05:08] LABS: Alanine Aminotransferase 33 U/L (7-40); Alkaline Phosphatase 201 U/L (46-116); Anion Gap 6 (5-15); Blood Urea Nitrogen 46 mg/dL (9-23); Calcium 8.1 mg/dL (8.7-10.4); Carbon Dioxide 21 mmol/L (20-30); Chloride 103 mmol/L (98-107); Glucose 96 mg/dL (74-106); Magnesium 1.7 mg/dL (1.6-2.6); Potassium 4.6 mmol/L (3.5-5.1); Sodium 130 mmol/L (136-145)
[2023-12-15 05:09] LABS: Albumin 2.9 g/dL (3.2-4.8); Aspartate Aminotransferase 28 U/L (13-40)
[2023-12-15 05:10] LABS: Bilirubin, Total 0.5 mg/dL (0.2-1.0); Total Protein 5.2 g/dL (5.7-8.2)
[2023-12-15 05:16] LABS: BUN/Creatinine Ratio 25.3 (10.0-20.0)
[2023-12-15] MEDS: MAGNESIUM OXIDE 400 MG TAB PO ONE (09:17)
[2023-12-15 12:07] LABS: Kappa Lite Chain Free Serum 24.5 mg/L (3.3-19.4)
[2023-12-15] MEDS: PANTOPRAZOLE 40 MG TAB PO ONE (12:51)
[2023-12-15] MEDS: MAGNESIUM SULFATE 1GM/100ML 100 ML IV ONE (17:59)
[2023-12-15] MEDS: FUROSEMIDE 40 MG/4 ML VIAL IV ONE (18:13)
[2023-12-15] MEDS: POLYETHYLENE GLYCOL 17 GM PWDR PO ONE (21:10)
[2023-12-15 22:57] LABS: Creatinine, Urine 17.01 mg/dL (30.0-125.0)
[2023-12-16] VITALS (20 sets, daily range): BP systolic 108–159; BP diastolic 56–68; PULSE 65–95; RESP 12–20; TEMP 97.9–98.7; O2SAT 92–100
[2023-12-16 03:45] LABS: Basophils # (auto) 0 10 ^3/uL (0-0.2); Eosinophils # (auto) 0.1 10 ^3/uL (0-0.8); Eosinophils % (auto) 0.6 % (0.0-7.0); Hematocrit 28.9 % (36.0-46.0); Hemoglobin 9.7 g/dL (12.2-16.2); Lymphocytes % (auto) 7.2 % (10.0-50.0); Mean Corpuscular Hemoglobin 30.8 pg (28.0-32.0); Mean Corpuscular Hgb Conc. 33.6 g/dL (32.0-36.0); Mean Corpuscular Volume 91.6 fL (80.0-100.0); Monocytes # (auto) 1.3 10 ^3/uL (0-1.3); Monocytes % (auto) 9.6 % (0.0-12.0); Neutrophils # (auto) 10.9 10 ^3/uL (1.6-8.6); Neutrophils % (auto) 82.6 % (37.0-80.0); Red Blood Cells 3.16 10^6/uL (4.0-5.20); Red Cell Distribution Width 14.6 % (11.8-14.3); White Blood Cell 13.2 10^3/uL (4.4-10.8)
[2023-12-16 04:03] LABS: Alanine Aminotransferase 29 U/L (7-40); Albumin 2.8 g/dL (3.2-4.8); Alkaline Phosphatase 265 U/L (46-116); Anion Gap 6 (5-15); Aspartate Aminotransferase 23 U/L (13-40); Blood Urea Nitrogen 43 mg/dL (9-23); Calcium 8.6 mg/dL (8.7-10.4); Carbon Dioxide 22 mmol/L (20-30); Chloride 101 mmol/L (98-107); Glucose 101 mg/dL (74-106); Magnesium 1.9 mg/dL (1.6-2.6); Potassium 4.3 mmol/L (3.5-5.1); Sodium 129 mmol/L (136-145)
[2023-12-16 04:04] LABS: Bilirubin, Total 0.5 mg/dL (0.2-1.0); Total Protein 5.2 g/dL (5.7-8.2)
[2023-12-16 10:53] LABS: INR 1.04 (0.9-1.15); Partial Thromboplastin Time 29.9 SEC (24.5-34.5); Prothrombin Time 10.9 sec (9.3-11.8)
[2023-12-16] MEDS: MAGNESIUM SULFATE 1GM/100ML 100 ML IV SCH (14:32)
[2023-12-16] MEDS: FUROSEMIDE 40 MG/4 ML VIAL IV ONE (14:32)
[2023-12-16] MEDS ORDERED: LIDOCAINE VISCOUS 2% 15ML UD ONE (14:40)
[2023-12-16] MEDS ORDERED: diphenhdrAMINE HCL 50 MG/1 ML VL ONE (14:40)
[2023-12-16] MEDS ORDERED: SODIUM CHLORIDE LOCK 10 ML ONE (14:40)
[2023-12-16] MEDS: MIDAZOLAM HCL 5 MG/ML-1ML VIAL ONE (18:36)
[2023-12-16] MEDS: fentaNYL CITRATE 100 MCG/2 ML VL ONE (18:36)
[2023-12-16] MEDS: PANTOPRAZOLE 40 MG TAB PO SCH (19:00)
[2023-12-16] MEDS: POLYETHYLENE GLYCOL 17 GM PWDR PO SCH (19:00)
[2023-12-17] VITALS (9 sets, daily range): BP systolic 100–157; BP diastolic 40–88; PULSE 64–93; RESP 16–18; TEMP 97.6–98.3; O2SAT 91–95
[2023-12-17 06:35] LABS: Basophils # (auto) 0.1 10 ^3/uL (0-0.2); Basophils % (auto) 0.7 % (0.0-2.0); Eosinophils # (auto) 0.2 10 ^3/uL (0-0.8); Eosinophils % (auto) 2.6 % (0.0-7.0); Hematocrit 30.3 % (36.0-46.0); Hemoglobin 10.1 g/dL (12.2-16.2); Lymphocytes # (auto) 0.8 10 ^3/uL (0.4-5.4); Lymphocytes % (auto) 9.6 % (10.0-50.0); Mean Corpuscular Hemoglobin 31.3 pg (28.0-32.0); Mean Corpuscular Hgb Conc. 33.5 g/dL (32.0-36.0); Mean Corpuscular Volume 93.3 fL (80.0-100.0); Monocytes # (auto) 1.2 10 ^3/uL (0-1.3); Monocytes % (auto) 14.2 % (0.0-12.0); Neutrophils # (auto) 6.1 10 ^3/uL (1.6-8.6); Neutrophils % (auto) 72.9 % (37.0-80.0); Nucleated Red Blood Cells % 0.2 %; Red Blood Cells 3.24 10^6/uL (4.0-5.20); Red Cell Distribution Width 14.8 % (11.8-14.3); White Blood Cell 8.3 10^3/uL (4.4-10.8)
[2023-12-17 06:44] LABS: Alanine Aminotransferase 22 U/L (7-40); Alkaline Phosphatase 247 U/L (46-116); Anion Gap 7 (5-15); Aspartate Aminotransferase 19 U/L (13-40); BUN/Creatinine Ratio 18.9 (10.0-20.0); Blood Urea Nitrogen 34 mg/dL (9-23); Calcium 8.8 mg/dL (8.7-10.4); Carbon Dioxide 22 mmol/L (20-30); Chloride 102 mmol/L (98-107); Glucose 88 mg/dL (74-106); Potassium 3.8 mmol/L (3.5-5.1); Sodium 131 mmol/L (136-145)
[2023-12-17 06:45] LABS: Bilirubin, Total 0.4 mg/dL (0.2-1.0); Total Protein 5.4 g/dL (5.7-8.2)
[2023-12-17 08:43] LABS: COVID19 ANTIGEN SOFIA FIA NEGATIVE (NEGATIVE)
[2023-12-17 09:06] LABS: Albumin 2.7 g/dL (2.9-4.4); Alpha-1-Globulin 0.3 g/dL (0.0-0.4); Alpha-2-Globulin 0.6 g/dL (0.4-1.0); Gamma Globulin 1.1 g/dL (0.4-1.8); Globulin Total 2.7 g/dL (2.2-3.9); Protein Total Serum 5.4 g/dL (6.0-8.5)
[2023-12-17] MEDS: ASPirin 81 mg TAB PO SCH (10:20)
[2023-12-17] MEDS: CARVEDILOL 3.125 MG TAB PO ONE (12:36)
[2023-12-17] MEDS: ENOXAPARIN SOD 80 MG/0.8ML SYRINGE SC SCH (12:37)
[2023-12-17 14:19] LABS: Rapid Influenza A Negative (Negative); Rapid Influenza B Negative (Negative)
[2023-12-17] MEDS: POTASSIUM CHLORIDE 20 MEQ, LIDOCAINE 1% (LOCAL ANESTH.) 2 ML in SODIUM CHL 0.9% 100 ML IV ONE (14:22)
[2023-12-17] MEDS: FUROSEMIDE 40 MG/4 ML VIAL IV SCH (17:29)
[2023-12-17] MEDS: CARVEDILOL 3.125 MG TAB PO SCH (21:51)
[2023-12-17] MEDS ORDERED: ENOXAPARIN SOD 100 MG/1 ML SYRINGE SC SCH (22:00)
[2023-12-18] VITALS (7 sets, daily range): BP systolic 122–158; BP diastolic 47–82; PULSE 75–91; RESP 16–18; TEMP 97.7–98.6; O2SAT 90–100
[2023-12-18 06:06] LABS: Hemoglobin 8.8 g/dL (12.2-16.2); Mean Corpuscular Hemoglobin 30.2 pg (28.0-32.0); Mean Corpuscular Hgb Conc. 32.8 g/dL (32.0-36.0); Red Blood Cells 2.93 10^6/uL (4.0-5.20); Red Cell Distribution Width 14.5 % (11.8-14.3); White Blood Cell 6.1 10^3/uL (4.4-10.8)
[2023-12-18 06:06] LABS: Renin Activity 9.8 ng/mL/hr (.)
[2023-12-18 06:07] LABS: Band Neutrophils % (manual) 0; Basophils % (manual) 0 (0.0-2.0); Blast Cells 0; Eosinophils % (manual) 0 (0-7); Metamyelocytes % 0; Myelocytes % 0; Promyelocytes % 0; Reactive Lymphocytes 0
[2023-12-18 06:17] LABS: Alanine Aminotransferase 68 U/L (7-40); Albumin 2.9 g/dL (3.2-4.8); Alkaline Phosphatase 573 U/L (46-116); Anion Gap 7 (5-15); Aspartate Aminotransferase 74 U/L (13-40); BUN/Creatinine Ratio 23.3 (10.0-20.0); Bilirubin, Total 0.4 mg/dL (0.2-1.0); Blood Urea Nitrogen 41 mg/dL (9-23); Calcium 8.6 mg/dL (8.7-10.4); Carbon Dioxide 23 mmol/L (20-30); Chloride 101 mmol/L (98-107); Glucose 86 mg/dL (74-106); Potassium 3.9 mmol/L (3.5-5.1); Sodium 131 mmol/L (136-145); Total Protein 5.3 g/dL (5.7-8.2)
[2023-12-18 07:37] LABS: Lymphocytes % (manual) 18 (10.0-50.0); Monocytes % (manual) 14 (0-12)
[2023-12-18 09:08] LABS: Platelet Estimate Decreased
[2023-12-18 18:06] LABS: Thyroglobulin Antibody <1.0 IU/mL (0.0-0.9)
[2023-12-18] MEDS: DexAMETHasone 4 MG TAB PO ONE (23:04)
[2023-12-19 05:00] VITALS: BP 140/65; PULSE 83; RESP 17; TEMP 98.8; O2SAT 92
[2023-12-19 05:49] LABS: Basophils # (auto) 0.1 10 ^3/uL (0-0.2); Basophils % (auto) 0.8 % (0.0-2.0); Eosinophils # (auto) 0.1 10 ^3/uL (0-0.8); Eosinophils % (auto) 1.4 % (0.0-7.0); Hematocrit 29.6 % (36.0-46.0); Hemoglobin 9.9 g/dL (12.2-16.2); Lymphocytes # (auto) 0.6 10 ^3/uL (0.4-5.4); Lymphocytes % (auto) 9.1 % (10.0-50.0); Mean Corpuscular Hemoglobin 30.4 pg (28.0-32.0); Mean Corpuscular Hgb Conc. 33.4 g/dL (32.0-36.0); Monocytes # (auto) 0.9 10 ^3/uL (0-1.3); Neutrophils # (auto) 4.9 10 ^3/uL (1.6-8.6); Neutrophils % (auto) 74.7 % (37.0-80.0); Nucleated Red Blood Cells % 0.1 %; Red Blood Cells 3.25 10^6/uL (4.0-5.20); Red Cell Distribution Width 14.7 % (11.8-14.3); White Blood Cell 6.6 10^3/uL (4.4-10.8)
[2023-12-19 06:14] LABS: Alanine Aminotransferase 60 U/L (7-40); Alkaline Phosphatase 519 U/L (46-116); Anion Gap 10 (5-15); Aspartate Aminotransferase 57 U/L (13-40); Bilirubin, Total 0.5 mg/dL (0.2-1.0); Blood Urea Nitrogen 43 mg/dL (9-23); Calcium 8.7 mg/dL (8.7-10.4); Carbon Dioxide 24 mmol/L (20-30); Chloride 99 mmol/L (98-107); Glucose 85 mg/dL (74-106); Magnesium 1.8 mg/dL (1.6-2.6); Potassium 3.8 mmol/L (3.5-5.1); Sodium 133 mmol/L (136-145); Total Protein 5.3 g/dL (5.7-8.2)
[2023-12-19 07:00] VITALS: PULSE 84; PULSE 98; RESP 22; O2SAT 98
[2023-12-19 08:00] VITALS: PULSE 84; PULSE 98; RESP 22; O2SAT 98
[2023-12-19 08:35] VITALS: BP 149/71; PULSE 98; RESP 22; TEMP 98.5; O2SAT 92
[2023-12-19] MEDS: DIGOXIN (250MCG/ML) 2 ML AMPULE IV ONE ×2 (12:09→16:00)
[2023-12-19 16:25] VITALS: BP 129/60; PULSE 89; RESP 22; TEMP 98.3; O2SAT 93
[2023-12-19 20:00] VITALS: PULSE 93; PULSE 94; RESP 18; O2SAT 98
[2023-12-20] VITALS (8 sets, daily range): BP systolic 127–180; BP diastolic 50–67; PULSE 80–95; RESP 17–18; TEMP 97.1–98.5; O2SAT 90–99
[2023-12-20 05:44] LABS: Basophils # (auto) 0 10 ^3/uL (0-0.2); Basophils % (auto) 0.5 % (0.0-2.0); Eosinophils # (auto) 0.1 10 ^3/uL (0-0.8); Eosinophils % (auto) 0.7 % (0.0-7.0); Hematocrit 30.1 % (36.0-46.0); Hemoglobin 9.8 g/dL (12.2-16.2); Lymphocytes # (auto) 0.7 10 ^3/uL (0.4-5.4); Lymphocytes % (auto) 9.8 % (10.0-50.0); Mean Corpuscular Hemoglobin 30.6 pg (28.0-32.0); Mean Corpuscular Hgb Conc. 32.5 g/dL (32.0-36.0); Mean Corpuscular Volume 94.2 fL (80.0-100.0); Monocytes # (auto) 1.1 10 ^3/uL (0-1.3); Neutrophils # (auto) 5.3 10 ^3/uL (1.6-8.6); Nucleated Red Blood Cells % 0.1 %; Red Cell Distribution Width 15.2 % (11.8-14.3); White Blood Cell 7.1 10^3/uL (4.4-10.8)
[2023-12-20 06:06] LABS: Alanine Aminotransferase 72 U/L (7-40); Albumin 2.8 g/dL (3.2-4.8); Alkaline Phosphatase 467 U/L (46-116); Anion Gap 9 (5-15); Aspartate Aminotransferase 80 U/L (13-40); BUN/Creatinine Ratio 24.7 (10.0-20.0); Blood Urea Nitrogen 44 mg/dL (9-23); Calcium 8.5 mg/dL (8.7-10.4); Carbon Dioxide 26 mmol/L (20-30); Chloride 99 mmol/L (98-107); Glucose 93 mg/dL (74-106); Magnesium 1.7 mg/dL (1.6-2.6); Potassium 3.8 mmol/L (3.5-5.1); Sodium 134 mmol/L (136-145)
[2023-12-20 06:07] LABS: Bilirubin, Total 0.5 mg/dL (0.2-1.0)
[2023-12-20] MEDS: DIGOXIN 0.125 MG TAB PO SCH (09:24)
[2023-12-20] MEDS: ENOXAPARIN SOD 80 MG/0.8ML SYRINGE SC SCH (09:26)
[2023-12-21] VITALS (8 sets, daily range): BP systolic 111–161; BP diastolic 51–85; PULSE 82–101; RESP 16–21; TEMP 97.6–99.1; O2SAT 94–99
[2023-12-21 07:18] LABS: Alanine Aminotransferase 100 U/L (7-40); Alkaline Phosphatase 442 U/L (46-116); Anion Gap 7 (5-15); Aspartate Aminotransferase 111 U/L (13-40); BUN/Creatinine Ratio 18.6 (10.0-20.0); Blood Urea Nitrogen 35 mg/dL (9-23); Calcium 8.7 mg/dL (8.7-10.4); Carbon Dioxide 28 mmol/L (20-30); Chloride 100 mmol/L (98-107); Glucose 90 mg/dL (74-106); Magnesium 1.8 mg/dL (1.6-2.6); Potassium 3.4 mmol/L (3.5-5.1); Sodium 135 mmol/L (136-145)
[2023-12-21 07:19] LABS: Basophils # (auto) 0 10 ^3/uL (0-0.2); Basophils % (auto) 0.5 % (0.0-2.0); Bilirubin, Total 0.4 mg/dL (0.2-1.0); Eosinophils # (auto) 0 10 ^3/uL (0-0.8); Eosinophils % (auto) 0.6 % (0.0-7.0); Hematocrit 30.4 % (36.0-46.0); Hemoglobin 10.1 g/dL (12.2-16.2); Lymphocytes % (auto) 13.4 % (10.0-50.0); Mean Corpuscular Hemoglobin 30.3 pg (28.0-32.0); Mean Corpuscular Hgb Conc. 33.3 g/dL (32.0-36.0); Monocytes # (auto) 1.1 10 ^3/uL (0-1.3); Monocytes % (auto) 14.3 % (0.0-12.0); Neutrophils # (auto) 5.3 10 ^3/uL (1.6-8.6); Neutrophils % (auto) 71.2 % (37.0-80.0); Nucleated Red Blood Cells % 0.2 %; Red Blood Cells 3.35 10^6/uL (4.0-5.20); Red Cell Distribution Width 14.8 % (11.8-14.3); Total Protein 5.4 g/dL (5.7-8.2); White Blood Cell 7.4 10^3/uL (4.4-10.8)
[2023-12-21] MEDS: POTASSIUM EFFERVESENT TAB 25 MEQ PO ONE (10:06)
[2023-12-22] VITALS (8 sets, daily range): BP systolic 116–142; BP diastolic 54–66; PULSE 80–96; RESP 16–21; TEMP 97.4–98.1; O2SAT 84–98
[2023-12-22 16:17] LABS: Chloride 99 mmol/L (98-107); Potassium 3.8 mmol/L (3.5-5.1); Sodium 134 mmol/L (136-145)
[2023-12-22 16:18] LABS: Anion Gap 7 (5-15); Carbon Dioxide 28 mmol/L (20-30)
[2023-12-22 16:19] LABS: Calcium 8.9 mg/dL (8.5-10.1)
[2023-12-22 16:23] LABS: Glucose 107 mg/dL (74-106)
[2023-12-22 16:24] LABS: BUN/Creatinine Ratio 19.5 (10.0-20.0); Blood Urea Nitrogen 42 mg/dL (9-23)
[2023-12-22] MEDS: POTASSIUM CHL 20 Meq TABLET PO ONE (16:31)
[2023-12-23] VITALS (13 sets, daily range): BP systolic 126–145; BP diastolic 57–62; PULSE 79–96; RESP 16–22; TEMP 97.7–98.3; O2SAT 94–100
[2023-12-23] MEDS: ALBUTEROL SULF 2.5 MG/0.5ML(0.5%) NEB SOLN NEB PRN (08:44)
[2023-12-23] MEDS: ACETYLCYSTEINE 20%(200MG/ML) SOL 4ML NEB SCH (21:48)
[2023-12-24] VITALS (12 sets, daily range): BP systolic 120–155; BP diastolic 58–87; PULSE 80–92; RESP 16–22; TEMP 36.6; O2SAT 92–100
[2023-12-24] MEDS ORDERED: CAR3125T PO (13:29)
== END 2023-12-24 16:57 | disposition home or self-care (01) | DRG 177 ==
LOC: ER 13:28 → TELE 18:40 → TELE-EAST 22:32 → ICU WEST 12-12 16:52 → TELE-WESTW 12-16 16:35
PROVIDERS: ADMIT Internal Medicine Geriatric Medicine; ATTEND Nurse Practitioner Acute Care
PROC: 0GBH3ZX Excision of Right Thyroid Gland Lobe, Percutaneous Approach, Diagnostic (ICD-10-PCS; 2023-12-11)
PROC: 0W9D3ZZ Drainage of Pericardial Cavity, Percutaneous Approach (ICD-10-PCS; 2023-12-12)
PROC: 05HC33Z Insertion of Infusion Device into Left Basilic Vein, Percutaneous Approach (ICD-10-PCS; principal; 2023-12-13)
PROC: B54NZZA Ultrasonography of Left Upper Extremity Veins, Guidance (ICD-10-PCS; 2023-12-13)
PROC: 30233N1 Transfusion of Nonautologous Red Blood Cells into Peripheral Vein, Percutaneous Approach (ICD-10-PCS; 2023-12-14)
PROC: 0DB98ZX Excision of Duodenum, Via Natural or Artificial Opening Endoscopic, Diagnostic (ICD-10-PCS; 2023-12-16)
DX: J15.69 Pneumonia due to other Gram-negative bacteria (principal); I21.A1 Myocardial infarction type 2; I50.43 Acute on chronic combined systolic (congestive) and diastolic (congestive) heart failure; J96.01 Acute respiratory failure with hypoxia; N17.0 Acute kidney failure with tubular necrosis; B25.9 Cytomegaloviral disease, unspecified; I31.39 Other pericardial effusion (noninflammatory); I13.0 Hypertensive heart and chronic kidney disease with heart failure and stage 1 through stage 4 chronic kidney disease, or unspecified chronic kidney disease; I16.1 Hypertensive emergency; B27.09 Gammaherpesviral mononucleosis with other complications; G44.40 Drug-induced headache, not elsewhere classified, not intractable; E86.0 Dehydration; R13.10 Dysphagia, unspecified; E04.1 Nontoxic single thyroid nodule; E78.5 Hyperlipidemia, unspecified; K80.20 Calculus of gallbladder without cholecystitis without obstruction; H02.401 Unspecified ptosis of right eyelid; I25.10 Atherosclerotic heart disease of native coronary artery without angina pectoris; D35.01 Benign neoplasm of right adrenal gland; I67.1 Cerebral aneurysm, nonruptured; K59.00 Constipation, unspecified; D50.0 Iron deficiency anemia secondary to blood loss (chronic); E83.42 Hypomagnesemia; E66.9 Obesity, unspecified; I48.0 Paroxysmal atrial fibrillation; Z20.822 Contact with and (suspected) exposure to COVID-19; K21.9 Gastro-esophageal reflux disease without esophagitis; R74.8 Abnormal levels of other serum enzymes; N20.0 Calculus of kidney; F32.A Depression, unspecified; D69.6 Thrombocytopenia, unspecified; N18.32 Chronic kidney disease, stage 3b; Z83.3 Family history of diabetes mellitus; Z82.49 Family history of ischemic heart disease and other diseases of the circulatory system; Z79.82 Long term (current) use of aspirin; Z79.899 Other long term (current) drug therapy; Z68.31 Body mass index [BMI] 31.0-31.9, adult; Z90.49 Acquired absence of other specified parts of digestive tract
CPT/HCPCS: 33016; 36415; 36600; 70450; 70496; 70540; 70551; 71045; 71250; 74176; 76536; 76604; 76700; 76775; 76942; 78226; 80048; 80053; 80061; 81001; 82024; 82088; 82150; 82164; 82306; 82533; 82550; 82570; 82595; 82607; 82728; 82746; 82805; 82962; 82977; 83010; 83036; 83516; 83520; 83540; 83550; 83605; 83615; 83690; 83735; 83835; 83880; 83883; 83930; 83935; 83986; 84100; 84133; 84155; 84165; 84244; 84300; 84443; 84484; 85007; 85025; 85027; 85045; 85610; 85652; 85730; 86038; 86141; 86147; 86200; 86225; 86235; 86256; 86300; 86376; 86431; 86592; 86644; 86645; 86664; 86703; 86704; 86706; 86708; 86787; 86800; 86803; 86850; 86900; 86901; 86920; 87040; 87070; 87075; 87081; 87086; 87205; 87340; 87426; 87804; 88172; 89051; 93005; 93306; 93970; 93975; 94640; 97110; 97116; 97163; 97530; 99152; 99291; C9113; G0378; J1100; J1756; J1885; J2001; J2250; J2405; J3490; J7060; Q0164

== ENCOUNTER → 2023-12-28 | Outpatient (CLI) | payer MEDICAID ==
[~2023-12-28] MED LIST: ASPI-325 PO; ATOR40TA52 PO; CAR3125T PO; FURO20TA3 PO; LOS25T PO; POTA-228 PO
[2023-12-28 09:55] LABS: Basophils # (auto) 0.1 10 ^3/uL (0-0.2); Basophils % (auto) 0.8 % (0.0-2.0); Eosinophils # (auto) 0.2 10 ^3/uL (0-0.8); Eosinophils % (auto) 2.2 % (0.0-7.0); Hematocrit 31.5 % (36.0-46.0); Hemoglobin 10.3 g/dL (12.2-16.2); Lymphocytes # (auto) 1.4 10 ^3/uL (0.4-5.4); Lymphocytes % (auto) 13.3 % (10.0-50.0); Mean Corpuscular Hemoglobin 30.1 pg (28.0-32.0); Mean Corpuscular Hgb Conc. 32.7 g/dL (32.0-36.0); Monocytes # (auto) 0.8 10 ^3/uL (0-1.3); Monocytes % (auto) 8.2 % (0.0-12.0); Neutrophils # (auto) 7.7 10 ^3/uL (1.6-8.6); Neutrophils % (auto) 75.5 % (37.0-80.0); Nucleated Red Blood Cells % 0.1 %; Red Blood Cells 3.43 10^6/uL (4.0-5.20); Red Cell Distribution Width 14.9 % (11.8-14.3); White Blood Cell 10.2 10^3/uL (4.4-10.8)
[2023-12-28 10:15] LABS: Alanine Aminotransferase 41 U/L (7-40); Albumin 3.5 g/dL (3.2-4.8); Alkaline Phosphatase 401 U/L (46-116); Anion Gap 6 (5-15); Aspartate Aminotransferase 37 U/L (13-40); BUN/Creatinine Ratio 25.3 (10.0-20.0); Bilirubin, Total 0.7 mg/dL (0.2-1.0); Blood Urea Nitrogen 45 mg/dL (9-23); Calcium 9.2 mg/dL (8.5-10.1); Carbon Dioxide 30 mmol/L (20-30); Chloride 104 mmol/L (98-107); Glucose 96 mg/dL (74-106); Potassium 4.2 mmol/L (3.5-5.1); Sodium 140 mmol/L (136-145); Total Protein 6.8 g/dL (5.7-8.2)
[2023-12-28 10:18] LABS: Ferritin 867.6 ng/mL (10-291)
[2023-12-28 10:22] LABS: % Iron Saturation 20.1 % (15-50)
[2023-12-28 11:02] LABS: Folate (Folic Acid) 40.55 ng/mL (>5.38)
== END | disposition home or self-care (01) ==
LOC: LAB 09:39
PROVIDERS: ATTEND Internal Medicine
DX: I50.9 Heart failure, unspecified (principal); D64.9 Anemia, unspecified
CPT/HCPCS: 36415; 80053; 82607; 82728; 82746; 83540; 83550; 85025